=== PATIENT | male | born 1945 | race Caucasian/White ===

== ENCOUNTER 2018-05-14 09:24 | Day surgery (SDC) | payer MEDICARE, OTHER ==
[~2018-05-14] VITALS: Ht 198.1 cm; Wt 136.6 kg
[~2018-05-14 09:24] MED LIST: ASPI-515 PO; DIGO125T PO; EZET1TAB30 PO; FURO20TA3 PO; GLIP10TA13 PO; LISI5TAB7 PO; METO25TA35 PO; METO50TA4 PO; OXYC5TAB3 PO; POLY17PO5 PO; SITA1TAB5 PO; SPIR25TA5 PO; WARF10TA PO
[2018-05-14] MEDS ORDERED: SODIUM CHLORIDE 0.9% 1,000 ML IV SCH (09:57)
[2018-05-14 10:18] LABS: BASOPHILS # (AUTO) 0.05 x10^3/uL (0-0.1); BASOPHILS % (AUTO) 1 % (0-1); EOSINOPHILS # (AUTO) 0.37 x10^3/uL (0-0.4); EOSINOPHILS % (AUTO) 9 % (1-7); LYMPHOCYTES % (AUTO) 35 % (22-44); MD NO; MEAN CORPUSCULAR HEMOGLOBIN 30.6 pg (27.5-34.5); MEAN PLATELET VOLUME 7.2 fL (7.4-10.4); MONOCYTES # (AUTO) 0.69 x10^3/uL (0.2-0.8); MONOCYTES % (AUTO) 16 % (2-9); NEUTROPHILS # (AUTO) 1.63 x10^3/uL (1.8-6.8); NEUTROPHILS % (AUTO) 39 % (42-75); PLATELET COUNT 209 x10^3/uL (130-400); RED BLOOD COUNT 5.46 x10^6/uL (4.38-5.82); RED CELL DISTRIBUTION WIDTH 17.1 % (9.4-14.8)
[2018-05-14] MEDS ORDERED: APIX5TAB PO (10:19)
[2018-05-14] MEDS ORDERED: L.AC1CAP6 PO (10:19)
[2018-05-14] MEDS ORDERED: MAGN400T36 PO (10:19)
[2018-05-14] MEDS ORDERED: EZET1TAB26 PO (10:19)
[2018-05-14] MEDS ORDERED: AMIO200T42 PO (10:19)
[2018-05-14] MEDS ORDERED: MULT-249 PO (10:19)
[2018-05-14] MEDS ORDERED: PANT40TA5 PO (10:19)
[2018-05-14] MEDS ORDERED: IRON1CAP12 PO (10:19)
[2018-05-14] MEDS ORDERED: METO25TA91 PO (10:19)
[2018-05-14] MEDS ORDERED: EMPA1TAB7 PO (10:19)
[2018-05-14] MEDS ORDERED: LIRA0.6P SQ (10:19)
[2018-05-14] MEDS ORDERED: DOXY100C15 PO (10:19)
[2018-05-14] MEDS ORDERED: CYAN250013 PO (10:19)
[2018-05-14] MEDS ORDERED: CHOL200024 PO (10:19)
[2018-05-14] MEDS ORDERED: PIOG15TA4 PO (10:19)
[2018-05-14 10:24] VITALS: BP 139/96
[2018-05-14 10:30] LABS: ALANINE AMINOTRANSFERASE 87 U/L (12-78); ALBUMIN 3.9 g/dL (3.4-5.0); ANION GAP 10 mmol/L (5-15); CALCIUM 8.9 mg/dL (8.5-10.1); CHLORIDE 109 mmol/L (98-107); CREATININE 1.31 mg/dL (0.7-1.3)
[2018-05-14] MEDS ORDERED: PLEASE ENTER HEIGHT AND WEIGHT MC SCH (10:30)
[2018-05-14 10:32] LABS: ALKALINE PHOSPHATASE 88 U/L (45-117); BILIRUBIN,TOTAL 1.4 mg/dL (0.2-1.0); TOTAL PROTEIN 7.7 g/dL (6.4-8.2)
[2018-05-14] MEDS ORDERED: PROPOFOL 10 MG/ML, 20ML ONE (11:37)
[2018-05-14] MEDS ORDERED: [UNRECOGNIZED DRUG - OTHER] PO SCH (21:00)
[2018-05-14] MEDS ORDERED: SIMVASTATIN PO SCH (21:00)
[2018-05-14] MEDS ORDERED: EZETIMIBE PO SCH (21:00)
[2018-05-14] MEDS ORDERED: METFORMIN HCL PO SCH (21:00)
[2018-05-14] MEDS ORDERED: EMPAGLIFLOZIN PO SCH (21:00)
[2018-05-14] MEDS ORDERED: DOXYCYCLINE MONOHYDRATE 100 MG PO SCH (21:00)
[2018-05-14] MEDS ORDERED: APIXABAN 5 MG TABLET PO SCH (21:00)
[2018-05-14] MEDS ORDERED: [UNRECOGNIZED DRUG - OTHER] PO SCH (21:00)
[2018-05-15] MEDS ORDERED: TEMPLATE NON-FORMULARY MED. (Cholecalciferol (Vitamin D3)** (Vitamin D3**) 2,000 UNIT) PO SCH (09:00)
[2018-05-15] MEDS ORDERED: PIOGLITAZONE HCL 15 MG PO SCH (09:00)
[2018-05-15] MEDS ORDERED: TEMPLATE NON-FORMULARY MED. (Pantoprazole Sodium** 40 MG) PO SCH (09:00)
[2018-05-15] MEDS ORDERED: [UNRECOGNIZED DRUG - OTHER] PO SCH (09:00)
[2018-05-15] MEDS ORDERED: AMIODARONE HCL 200 MG PO SCH (09:00)
[2018-05-15] MEDS ORDERED: TEMPLATE NON-FORMULARY MED. (Liraglutide (Victoza 2-Pak) 1.8 MG) SQ SCH (09:00)
[2018-05-15] MEDS ORDERED: MULTIVITAMIN WITH MINERALS PO SCH (09:00)
[2018-05-15] MEDS ORDERED: TEMPLATE NON-FORMULARY MED. (Magnesium Oxide (Magnesium) 1 TAB) PO SCH (09:00)
[2018-05-15] MEDS ORDERED: METOPROLOL SUCCINATE 25 MG TAB.ER.24H PO SCH (09:00)
[2018-05-15] MEDS ORDERED: PARACASEI B LACTIS PO SCH (09:00)
[2018-05-15] MEDS ORDERED: CYANOCOBALAMIN PO SCH (09:00)
[2018-05-15] MEDS ORDERED: ACIDOPH PO SCH (09:00)
== END 2018-05-14 13:35 | disposition home or self-care (01) ==
LOC: CACL 09:24
PROVIDERS: ATTEND Internal Medicine Cardiovascular Disease
DX: I49.9 Cardiac arrhythmia, unspecified (principal); I47.2 Ventricular tachycardia; I42.9 Cardiomyopathy, unspecified; I48.91 Unspecified atrial fibrillation; I63.9 Cerebral infarction, unspecified; I10 Essential (primary) hypertension; R00.1 Bradycardia, unspecified; Z79.899 Other long term (current) drug therapy; Z79.4 Long term (current) use of insulin; Z95.810 Presence of automatic (implantable) cardiac defibrillator
CPT/HCPCS: 36415; 80053; 85025; 93005; 93283; J2704

== ENCOUNTER 2018-10-25 10:38 | Day surgery (SDC) | payer MEDICARE, OTHER ==
[~2018-10-25] VITALS: Ht 198.1 cm; Wt 144.5 kg
[~2018-10-25 10:38] MED LIST changes: +AMIO200T42 PO; +APIX5TAB PO; +CHOL200024 PO; +CYAN250013 PO; +DOXY100C15 PO; +EMPA1TAB7 PO; +EZET1TAB26 PO; +IRON1CAP12 PO; +L.AC1CAP6 PO; +LIRA0.6P SQ; +MAGN400T36 PO; +METO25TA91 PO; +MULT-249 PO; +PANT40TA5 PO; +PIOG15TA4 PO
[2018-10-25] MEDS ORDERED: ONDANSETRON 2MG/ML, 2ML ONE (10:40)
[2018-10-25] MEDS ORDERED: SUCCINYLCHOLINE 20 MG/ML, 10ML ONE (10:40)
[2018-10-25] MEDS ORDERED: DEXAMETHASONE 4 MG/ML, 1ML ONE (10:40)
[2018-10-25] MEDS ORDERED: PROPOFOL 10 MG/ML, 20ML ONE (10:40)
[2018-10-25] MEDS ORDERED: ROCURONIUM 10MG/ML,5ML ONE (10:40)
[2018-10-25] MEDS ORDERED: SODIUM CHLORIDE 0.9% 1,000 ML IV SCH ×2 (11:53→12:00)
[2018-10-25 12:08] VITALS: BP 160/106
[2018-10-25] MEDS ORDERED: EZET1TAB30 PO (12:30)
[2018-10-25] MEDS ORDERED: METO100T5 PO (12:30)
[2018-10-25] MEDS ORDERED: PROPOFOL 50 ML ONE (12:33)
[2018-10-25] MEDS ORDERED: EMPA1TAB9 PO (12:33)
[2018-10-25] MEDS ORDERED: FENTANYL PF 250 MCG/5ML ONE (12:33)
[2018-10-25] MEDS ORDERED: TRESIBA SC (12:33)
[2018-10-25] MEDS ORDERED: IRON PO (12:35)
[2018-10-25] MEDS ORDERED: MORPHINE SULFATE 4 MG/ML, 1ML IVPush PRN (13:00)
[2018-10-25] MEDS ORDERED: EPHEDRINE 50 MG/ML, 1ML IVPush PRN (13:00)
[2018-10-25] MEDS ORDERED: DIPHENHYDRAMINE 50 MG/ML, 1ML IVPush PRN (13:00)
[2018-10-25] MEDS ORDERED: ACETAMINOPHEN 325 MG TABLET PO PRN ×2 (13:00→15:30)
[2018-10-25] MEDS ORDERED: PROMETHAZINE 25 MG SUPP PR PRN (13:00)
[2018-10-25] MEDS ORDERED: PROMETHAZINE 12.5 MG SUPP PR PRN (13:00)
[2018-10-25] MEDS ORDERED: FENTANYL PF 100 MCG/2ML IV PRN (13:00)
[2018-10-25] MEDS ORDERED: MIDAZOLAM 1 MG/ML, 2ML IV PRN (13:00)
[2018-10-25] MEDS ORDERED: EPHEDRINE 50 MG/ML, 1ML IM PRN (13:00)
[2018-10-25] MEDS ORDERED: ONDANSETRON ODT 8 MG PO PRN (13:00)
[2018-10-25] MEDS ORDERED: ONDANSETRON 2MG/ML, 2ML IV PRN (13:00)
[2018-10-25] MEDS ORDERED: PROMETHAZINE 25 MG/ML, 1ML IV PRN (13:00)
[2018-10-25] MEDS ORDERED: DIAZEPAM 5 MG/ML, 2ML IVPush PRN (13:00)
[2018-10-25] MEDS ORDERED: LABETALOL 5MG/ML, 20ML IV PRN (13:00)
[2018-10-25] MEDS ORDERED: ISOPROTERENOL 0.2MG/ML, 5ML ONE (13:58)
[2018-10-25 16:38] VITALS: BP 127/84
[2018-10-25 20:00] VITALS: BP 114/76
[2018-10-25] MEDS ORDERED: EMPAGLIFLOZIN PO SCH (21:00)
[2018-10-25] MEDS ORDERED: FERROUS GLUCONATE 324 MG TABLET PO SCH (21:00)
[2018-10-25] MEDS ORDERED: APIXABAN 5 MG TABLET PO SCH (21:00)
[2018-10-25] MEDS ORDERED: METFORMIN HCL PO SCH (21:00)
[2018-10-25] MEDS ORDERED: INSULIN DEGLUDEC SC SCH (21:00)
[2018-10-26] MEDS ORDERED: PIOGLITAZONE 15 MG TABLET PO SCH (09:00)
[2018-10-26] MEDS ORDERED: ACIDOPH PO SCH (09:00)
[2018-10-26] MEDS ORDERED: AMIODARONE 200 MG TABLET PO SCH (09:00)
[2018-10-26] MEDS ORDERED: PARACASEI B LACTIS PO SCH (09:00)
[2018-10-26] MEDS ORDERED: MULTIVITAMINS/MINERALS TABLET PO SCH (09:00)
[2018-10-26] MEDS ORDERED: (Liraglutide (Victoza 2-Pak) 1.8 MG) SQ SCH (09:00)
[2018-10-26] MEDS ORDERED: MAGNESIUM OXIDE 400 MG TABLET PO SCH (09:00)
[2018-10-26] MEDS ORDERED: METOPROLOL SUCCINATE 50 MG TAB.ER.24H PO SCH (09:00)
== END 2018-10-25 22:15 | disposition home or self-care (01) ==
LOC: CACL 10:38 → 5SO 16:21 → CACL 22:15
PROVIDERS: ATTEND Internal Medicine Cardiovascular Disease
DX: I48.92 Unspecified atrial flutter (principal); I10 Essential (primary) hypertension; I48.91 Unspecified atrial fibrillation; I34.0 Nonrheumatic mitral (valve) insufficiency; I36.1 Nonrheumatic tricuspid (valve) insufficiency; Z86.73 Personal history of transient ischemic attack (TIA), and cerebral infarction without residual deficits; Z95.810 Presence of automatic (implantable) cardiac defibrillator; Z88.5 Allergy status to narcotic agent
CPT/HCPCS: 93312; 93321; 93325; 93613; 93621; 93653; C1730; C1731; C1732; C1769; C1894; J0330; J1100; J2405; J2704; J3010; G0378